=== PATIENT | male | born 1935 | race Caucasian/White ===

== ENCOUNTER 2020-08-31 10:28 | Emergency (ER) | payer MEDICARE, BC ==
--- NOTE | 2020-08-31 10:57 | ED ---
General Adult HPI - General Chief complaint: Dizziness Stated complaint: near syncope, lt knee pain Time Seen by Provider: 08/31/20 10:38 Source: patient Mode of arrival: wheelchair Limitations: physical limitation - History of Present Illness Initial comments: 85-year-old male with a past medical history of COPD, CVA, diabetes mellitus, hyperlipidemia, hypertension, [place] presents to the emergency room for a chief complaint of left knee pain. Patient reports that he had 3 falls yesterday. States that he has had issues with this for years. States his legs started to shake and give out on him. Patient denies any lightheadedness preceding these falls or syncopal episodes. Patient denies room spinning sensation. Patient states he has had these falls evaluated before but they were unable to tell him why his legs get "the tremors" as he calls them. Patient's main complaint is left knee pain. States that he was coming out of breakfast yesterday morning and his legs started shaking and he fell on his left knee. She says it has been painful to walk on since that time so he wanted to be evaluated. Patient does take plavix but adamantly denies hitting his head or headache. Patient has no other complaints at this time including shortness of breath, chest pain, abdominal pain, nausea or vomiting, headache, or visual changes. - Related Data Home Medications Medication Instructions Recorded Confirmed Aspirin EC [Ecotrin Low Dose] 81 mg PO DAILY 08/31/20 08/31/20 Clopidogrel [Plavix] 75 mg PO DAILY 08/31/20 08/31/20 Ergocalciferol (Vitamin D2) 50 mcg PO BID 08/31/20 08/31/20 [Vitamin D2 (2000 Iu)] Escitalopram [Lexapro] 20 mg PO DAILY 08/31/20 08/31/20 Fluticasone/Umeclidin/Vilanter 1 puff INHALATION RT-DAILY 08/31/20 08/31/20 [Trelerossy Ellipta 100-62.5-25] Folic Acid 1 mg PO DAILY 08/31/20 08/31/20 Gabapentin 600 mg PO HS 08/31/20 08/31/20 Gabapentin [Neurontin] 300 mg PO DAILY 08/31/20 08/31/20 Insulin Glargine [Lantus] 50 unit SQ HS 08/31/20 08/31/20 Levothyroxine Sodium [Euthyrox] 75 mcg PO DAILY 08/31/20 08/31/20 Multivitamins, Thera [Multivitamin 1 tab PO DAILY 08/31/20 08/31/20 (formulary)] Pravastatin Sodium [Pravachol] 20 mg PO HS 08/31/20 08/31/20 glipiZIDE [Glucotrol] 5 mg PO AC-BRKFST 08/31/20 08/31/20 sitaGLIPtin [Januvia] 50 mg PO DAILY 08/31/20 08/31/20 Allergies Allergy/AdvReac Type Severity Reaction Status Date / Time No Known Allergies Allergy Verified 08/31/20 11:24 Review of Systems ROS Statement: Those systems with pertinent positive or pertinent negative responses have been documented in the HPI. ROS Other: All systems not noted in ROS Statement are negative. Past Medical History Past Medical History: COPD, CVA/TIA, Diabetes Mellitus, Hyperlipidemia, Hypertension, Myocardial Infarction ([place]), Pneumonia, Thyroid Disorder History of Any Multi-Drug Resistant Organisms: None Reported Past Surgical History: Back Surgery, Coronary Bypass/CABG, Heart Catheterization With Stent Additional Past Surgical History / Comment(s): valve, neck Past Psychological History: No Psychological Hx Reported Smoking Status: Never smoker Past Alcohol Use History: None Reported Past Drug Use History: None Reported General Exam Limitations: physical limitation General appearance: alert, in no apparent distress Head exam: Present: atraumatic, normocephalic, normal inspection Eye exam: Present: normal appearance, PERRL, EOMI. Absent: scleral icterus, conjunctival injection, periorbital swelling ENT exam: Present: normal exam, mucous membranes moist Neck exam: Present: normal inspection. Absent: tenderness, meningismus, lymphadenopathy Respiratory exam: Present: normal lung sounds bilaterally. Absent: respiratory distress, wheezes Cardiovascular Exam: Present: regular rate, normal rhythm, normal heart sounds GI/Abdominal exam: Present: soft, normal bowel sounds. Absent: distended, tenderness, guarding, rebound, rigid Extremities exam: Present: full ROM (Full range of motion of the left knee), tenderness (Tenderness noted to the medial aspect of the left knee), normal capillary refill (Capillary refill less than 2 seconds in the left lower extremity), other (Sensation intact left lower extremity). Absent: joint swelling (No significant edema noted of the left knee. No erythema.), calf tenderness (no calf tenderness, negative Homans sign) Course Vital Signs 08/31/20 10:32 Temperature 98.0 F Pulse Rate 81 Respiratory 20 Rate Blood Pressure 137/66 O2 Sat by Pulse 98 Oximetry Medical Decision Making - Medical Decision Making Vitals are stable. Patient is on 2 L which she wears at home. CBC is relatively unremarkable. There is anemia which I suspect be chronic. Patient denies any acute bleeding. CMP does show chronic kidney disease and hyperglycemia. Patient does have a history of chronic kidney disease as confirmed by his daughter over the phone as we do not have any previous labs on him. Urinalysis is negative. Chest x-ray shows chronic changes and cardiomegaly without suspicious acute pulmonary process. Knee x-ray shows no acute fracture or dislocation. At this time patient is stable for discharge home. I did offer a knee immobilizer however he is concerned that this could increase his risk of falls. Serg wrap to be applied by nurse and sent. Patient is a walker at home that he will use. Patient sent is at bedside and can help him. I will give him the name of orthopedics as he require MRI. He will return for any worsening symptoms. - Lab Data Result diagrams: 08/31/20 10:51 08/31/20 10:51 Lab Results 08/31/20 08/31/20 08/31/20 Range/Units 10:51 10:51 12:15 WBC 11.4 H (3.8-10.6) k/uL RBC 4.15 L (4.30-5.90) m/uL Hgb 12.2 L (13.0-17.5) gm/dL Hct 35.4 L (39.0-53.0) % MCV 85.3 (80.0-100.0) fL MCH 29.4 (25.0-35.0) pg MCHC 34.4 (31.0-37.0) g/dL RDW 15.2 (11.5-15.5) % Plt Count 49 L (150-450) k/uL MPV 11.5 Neutrophils % 81 % Lymphocytes % 10 % Monocytes % 7 % Eosinophils % 1 % Basophils % 0 % Neutrophils # 9.3 H (1.3-7.7) k/uL Lymphocytes # 1.1 (1.0-4.8) k/uL Monocytes # 0.7 (0-1.0) k/uL Eosinophils # 0.1 (0-0.7) k/uL Basophils # 0.0 (0-0.2) k/uL Manual Slide Review Performed Toxic Granulation Present Sodium 138 (137-145) mmol/L Potassium 5.0 (3.5-5.1) mmol/L Chloride 97 L (98-107) mmol/L Carbon Dioxide 34 H (22-30) mmol/L Anion Gap 7 mmol/L BUN 39 H (9-20) mg/dL Creatinine 1.87 H (0.66-1.25) mg/dL Est GFR (CKD-EPI)AfAm 37 (>60 ml/min/1.73 sqM) Est GFR (CKD-EPI)NonAf 32 (>60 ml/min/1.73 sqM) Glucose 215 H (74-99) mg/dL Calcium 9.4 (8.4-10.2) mg/dL Urine Color Yellow Urine Appearance Clear (Clear) Urine pH 6.5 (5.0-8.0) Ur Specific Shock 1.016 (1.001-1.035) Urine Protein Negative (Negative) Urine Glucose (UA) Negative (Negative) Urine Ketones Negative (Negative) Urine Blood Negative (Negative) Urine Nitrite Negative (Negative) Urine Bilirubin Negative (Negative) Urine Urobilinogen <2.0 (<2.0) mg/dL Ur Leukocyte Esterase Negative (Negative) Disposition Clinical Impression: Knee pain, left, Fall Disposition: HOME SELF-CARE Condition: Good Instructions (If sedation given, give patient instructions): Knee Pain (ED) Additional Instructions: Please take Tylenol for pain. If pain is severe take Tylenol 3. Follow up with your doctor. Follow-up with orthopedics for knee pain as well as you may need an MRI or further imaging. Return to the emergency room for any worsening symptoms. Is patient prescribed a controlled substance at d/c from ED?: No Referrals: Nonstaff,Physician [Primary Care Provider] - 1-2 days Pratik Carcamo MD [STAFF PHYSICIAN] - 1-2 days Time of Disposition: 13:32
[2020-08-31 11:33] LABS: Basophils % (A) 0 %; Eosinophils # (A) 0.1 k/uL (0-0.7); Eosinophils % (A) 1 %; HCT 35.4 % (39.0-53.0); HGB 12.2 gm/dL (13.0-17.5); Lymphocytes # (A) 1.1 k/uL (1.0-4.8); Lymphocytes % (A) 10 %; MCH 29.4 pg (25.0-35.0); MCHC 34.4 g/dL (31.0-37.0); MCV 85.3 fL (80.0-100.0); Mean Platelet Volume 11.5; Monocytes # (A) 0.7 k/uL (0-1.0); Monocytes % (A) 7 %; Neutrophils # (A) 9.3 k/uL (1.3-7.7); Neutrophils % (A) 81 %; Platelet Count 49 k/uL (150-450); RBC 4.15 m/uL (4.30-5.90); RDW 15.2 % (11.5-15.5); WBC 11.4 k/uL (3.8-10.6)
[2020-08-31 11:39] LABS: Calcium 9.4 mg/dL (8.4-10.2)
[2020-08-31 11:44] LABS: Toxic Granulation Present
--- NOTE | 2020-08-31 11:57 | XR ---
EXAMINATION TYPE: XR knee complete LT DATE OF EXAM: 08/31/2020 CLINICAL HISTORY: Pain after fall injury. TECHNIQUE: Three views of the left knee are obtained. COMPARISON: None. FINDINGS: There is no acute fracture/dislocation evident in left knee. Moderate to severe narrowing medial tibiofemoral compartment. Moderate narrowing patellofemoral compartment. Meniscal calcificatio n bilaterally. Posterior arteriovascular calcification is seen. IMPRESSION: There is no acute fracture or dislocation in the left knee.
--- NOTE | 2020-08-31 11:57 | XR ---
EXAMINATION TYPE: XR chest 2V DATE OF EXAM: 08/31/2020 COMPARISON: Chest x-ray June 05, 2018. HISTORY: Fall injury with pain. TECHNIQUE: Frontal and lateral views of the chest are obtained. FINDINGS: Overlying sternal wires and mediastinal clips now present. There is chronic painful change without suspicious new focal air space opacity, pleural effusion, or pneumothorax seen. The cardiac silhouette size is mildly enlarged on current study. The osseous structures are intact. Surgical c lips in the abdomen on lateral view noted. IMPRESSION: Chronic changes and cardiomegaly without suspicious acute pulmonary process.
[2020-08-31] MEDS ORDERED: SODIUM CHLORIDE 0.9% 500 ML 500 ML IV STA (12:04)
[2020-08-31 12:20] LABS: Appearance,Urine Clear (Clear); Bilirubin,Urine Negative (Negative); Blood,Urine Negative (Negative); Color,Urine Yellow; Glucose,Urine (UA) Negative (Negative); Ketones,Urine Negative (Negative); Leukocyte Esterase,Urine Negative (Negative); Nitrite,Urine Negative (Negative); PH, Urine 6.5 (5.0-8.0); Protein,Urine Negative (Negative); Specific Gravity,Urine 1.016 (1.001-1.035); Urobilinogen,Urine <2.0 mg/dL (<2.0)
[2020-08-31] MEDS ORDERED: MORPHINE SULFATE 2 MG/ML SYRINGE IVP STA (13:14)
[2020-08-31 14:00] VITALS: BP 128/72; PULSE 86; RESP 18; TEMP 98.2
[2020-08-31] MEDS ORDERED: ACET/COD 300 MG/30 MG STARTER PACK 6 TAB BTL PO STA (14:05)
== END 2020-08-31 14:10 | disposition home or self-care (01) ==
LOC: EC 10:28
DX: M25.562 Pain in left knee (principal); E11.9 Type 2 diabetes mellitus without complications; E78.5 Hyperlipidemia, unspecified; I10 Essential (primary) hypertension; I25.2 Old myocardial infarction; J44.9 Chronic obstructive pulmonary disease, unspecified; Z79.02 Long term (current) use of antithrombotics/antiplatelets; Z79.4 Long term (current) use of insulin; Z79.82 Long term (current) use of aspirin; Z79.899 Other long term (current) drug therapy; Z86.73 Personal history of transient ischemic attack (TIA), and cerebral infarction without residual deficits; W19.XXXA Unspecified fall, initial encounter
CPT/HCPCS: 36415; 93005; 80048; 85025; 81003; 73562; 71046; 99284; 96374; J2270